=== PATIENT | female | born 1995 | race Caucasian/White ===

== ENCOUNTER 2020-02-28 06:14 | Inpatient (IN) ==
[2020-02-28] MEDS ORDERED: PITOCIN ONE (06:27)
[2020-02-28] MEDS ORDERED: D5 1/2 NS 1000 ML 1,000 ML IV ONE (06:28)
[2020-02-28] MEDS ORDERED: BETADINE SOLN ONE (06:28)
[2020-02-28] MEDS ORDERED: D5 1/2 NS 1L W PITOCIN 20 UNITS/L 20 UNITS/1,000 ML BAG IV ONE (06:29)
[2020-02-28] MEDS ORDERED: D5LR 1L W PITOCIN 10 UNITS/L 10 UNITS/1,000 ML BAG IV ONE (06:29)
--- NOTE | 2020-02-28 07:00 | DR.OB ---
OB Quick Note - Assessment/Plan Assessment/Plan: L&D 02/28/20 at 6:50am S-No complaint. O-Afebrile,VSS LTS=937 with good LTV, +accel, no decel. CTX=occasional, mild CVX=2-3cm/50%/-1/VTX AROM with clear fluid. IUPC and FSE placed. A-IUP at 39 6/7 weeks for induction P-Begin pitocin induction Anticipate
[2020-02-28] MEDS ORDERED: PITOCIN IVP ONE (07:29)
[2020-02-28] MEDS ORDERED: REGLAN INJ 10 MG VIAL IVP PRN (07:29)
[2020-02-28] MEDS ORDERED: D5 1/2 NS 1000 ML 1,000 ML IV SCH (07:29)
[2020-02-28] MEDS ORDERED: NUBAIN INJ 200 MG VIAL MULTIDOSE IVP PRN (07:29)
[2020-02-28] MEDS ORDERED: PHENERGAN INJ 25 MG IM PRN ×2 (07:29→15:42)
[2020-02-28] MEDS ORDERED: D5LR 1L W PITOCIN 10 UNITS/L 10 UNITS/1,000 ML BAG IV PRN (07:29)
[2020-02-28] MEDS ORDERED: MORPHINE SULFATE INJ 2 MG INJ IVP PRN (07:29)
[2020-02-28] MEDS ORDERED: STADOL INJ IVP PRN (09:23)
[2020-02-28] MEDS ORDERED: REGLAN INJ 10 MG VIAL ONE (09:24)
[2020-02-28] MEDS ORDERED: LR 1000 ML IV 1,000 ML IV ONE (10:32)
[2020-02-28] MEDS ORDERED: NS 1000 ML 1,000 ML IV ONE (11:00)
[2020-02-28] MEDS ORDERED: STADOL INJ ONE (11:49)
--- NOTE | 2020-02-28 12:01 | DR.OB ---
OB Quick Note - Assessment/Plan Assessment/Plan: L&D 02/28/20 at 11:50AM Pitocin=8mu/min. S-No complaint except CTX. O-Afebrile,VSS BZC=471 with good LTV, +accel, no decel. CTX=q 1 1/2 to 3 min., about 35-55mmHg CVX=7cm/90%/0 A-IUP at 39 6/7 weeks for induction P-Cont. pitocin inductilon Anticipate
[2020-02-28] MEDS ORDERED: XYLOCAINE 1 % (PLAIN) ONE (15:20)
[2020-02-28] MEDS: D5 1/2 NS 1000 ML 1,000 ML with PITOCIN 20 UNITS IV SCH ×2 (15:30)
[2020-02-28] MEDS ORDERED: MOTRIN TAB 800 MG PO PRN (15:42)
--- NOTE | 2020-02-28 16:15 | DR.OB ---
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 Head delivered over midline episiotomy. No nuchal cord. Nose and mouth bulb suctioned. Body delivered over midline episiotomy. Cord clamped x 2 and cut. handed to attendant. Cord sent for gases. Placenta delivered spontaneously / intact / 3 vessel cord. No CVX tears. Midline second degree episiotomy repaired with 0-vicryl in usual fashion. Viable male , VTX/OA, wt=8'13" and 8/9, stable to NBN. USV=602mc.
[2020-02-28] MEDS ORDERED: AMBIEN PO PRN (18:01)
[2020-02-28] MEDS ORDERED: DERMOPLAST PAIN RELIEF SPRAY TOP PRN (18:01)
[2020-02-28] MEDS ORDERED: ADACEL or BOOSTRIX TDaP VACCINE IM ONE (18:01)
[2020-02-28] MEDS ORDERED: MILK OF MAGNESIA PO PRN (18:01)
[2020-02-29] MEDS: D5 1/2 NS 1000 ML 1,000 ML with PITOCIN 20 UNITS IV SCH ×2 (02:25)
[2020-02-29 05:46] LABS: HEMATOCRIT 29.2 % (36.0-47.0); HEMOGLOBIN 9.5 g/dL (12.0-16.0)
[2020-02-29] MEDS ORDERED: PRENATAL PLUS PO ONE (07:26)
[2020-02-29] MEDS ORDERED: ADACEL or BOOSTRIX TDaP VACCINE IM ONE (08:30)
[2020-02-29] MEDS ORDERED: PRENATAL PLUS PO SCH (09:00)
[2020-02-29 16:12] VITALS: BP 113/59
== END 2020-02-29 18:50 | disposition home or self-care (01) | DRG 807 ==
LOC: LD 06:14 → MED/SURG 17:01
PROVIDERS: ADMIT Specialist; ATTEND Specialist
DX: Z11.59 Encounter for screening for other viral diseases; Z23 Encounter for immunization; O26.893 Other specified pregnancy related conditions, third trimester; O70.1 Second degree perineal laceration during delivery; Z37.0 Single live birth; Z01.818 Encounter for other preprocedural examination; Z3A.39 39 weeks gestation of pregnancy
CPT/HCPCS: 36415; 59409; 80048; 80307; 81001; 85014; 85018; 85025; 86592; 86850; 86900; 86901; 90715; A4216; A4222; J0595; J2590; J2765; J7030; J7120; S0197; S5010